=== PATIENT | female | born 1970 | race Caucasian/White ===

== ENCOUNTER → 2016-09-14 | Outpatient (REF) ==
[2016-09-14 09:54] LABS: MEAN CORPUSCULAR HEMOGLOBIN 31.4 pg (27.0-33.0); MEAN CORPUSCULAR HGB CONC 34.5 g/dl (32.0-36.5); MEAN CORPUSCULAR VOLUME 90.9 fl (80.0-96.0); RED CELL DISTRIBUTION WIDTH 12.8 % (11.5-14.5); WHITE BLOOD COUNT 8.8 K/mm3 (4.0-10.0)
[2016-09-14 10:07] LABS: ANION GAP 5 MEQ/L (8-16); BLOOD UREA NITROGEN 13 MG/DL (7-18); CALCIUM LEVEL 9.2 MG/DL (8.5-10.1); CARBON DIOXIDE LEVEL 29 MEQ/L (21-32); CHLORIDE LEVEL 111 MEQ/L (98-107); CHOLESTEROL LEVEL 191 MG/DL (<200); GLOMERULAR FILTRATION RATE > 60.0 (>58); GLUCOSE, FASTING 106 MG/DL (70-105); POTASSIUM SERUM 4.1 MEQ/L (3.5-5.1); SODIUM LEVEL 145 MEQ/L (136-145); TRIGLYCERIDES LEVEL 178 MG/DL (<150)
== END ==
LOC: M LAB REF 09:15
PROVIDERS: ATTEND Nurse Practitioner Family
DX: Z02.9 Encounter for administrative examinations, unspecified (principal)

== ENCOUNTER → 2016-09-18 | Outpatient (REF) ==
--- NOTE | 2016-09-18 13:30 | REPMRS ---
Patient History The patient states she has not had a clinical breast exam in over a year. No known family history of cancer. Digital Mammo Screening Bilat: September 18, 2016 - Exam #: [id number] Bilateral CC and MLO view(s) were taken. Technologist: Shilpi Leung, Technologist Prior study comparison: October 15, 2013, bilateral digital mammo screening bilat performed at [facility]. April 24, 2012, bilateral digital mammo screening bilat performed at [facility]. FINDINGS: There are scattered fibroglandular densities. There has been no change in the appearance of the mammogram from the prior studies. There is a mild amount of residual fibroglandular tissue which is fairly symmetric. There is no interval development of dominant mass, architectural distortion, or clustered microcalcification suggestive of malignancy. ASSESSMENT: BI-RADS/ACR category 1 mammogram. Negative. Recommendation Routine screening mammogram in 1 year (for women over age 40). This mammogram was interpreted with the aid of an FDA-approved computer-aided dectection system. Electronically Signed By: Ashkan Holley MD 09/18/16 [id number]
--- NOTE | 2016-09-18 22:41 | REP ---
Clinical: Annual physical examination . Comparison: None . Technique: PA and lateral. Findings: The mediastinum and cardiac silhouette are normal. The lung brown are clear and without acute consolidation, effusion, or pneumothorax. The skeletal structures are intact and normal. Impression: 1. No acute cardiopulmonary process. Signed by Dillon Lambert MD 09/18/2016 10:33 P
== END ==
LOC: M RAD 12:49 → EDSTATUS 13:00
PROVIDERS: ATTEND Nurse Practitioner Family
DX: Z02.89 Encounter for other administrative examinations (principal); Z12.31 Encounter for screening mammogram for malignant neoplasm of breast

== ENCOUNTER 2017-06-06 14:07 | Day surgery (SDC) | payer OTHER ==
[2017-06-06] MEDS: NS 1,000 ML IV (14:14)
[2017-06-06] MEDS: NS 500 ML IV (14:15)
[2017-06-06] MEDS: ONDANSETRON 4MG/2ML VIAL (J2405) IV ×3 (14:30→19:27)
[2017-06-06 14:35] LABS: BASO % 0.2 % (0.0-1.0); EOS % 0.2 % (0.0-3.0); HEMATOCRIT 43.2 % (36.0-47.0); HEMOGLOBIN 14.9 g/dl (12.0-16.0); IMMATURE GRANULOCYTE % 0.4 % (0-3.0); LYMPH # 1.1 10^3/uL (1.5-4.5); LYMPH % 7.1 % (24.0-44.0); MEAN CORPUSCULAR HGB CONC 34.5 g/dl (32.0-36.5); MEAN CORPUSCULAR VOLUME 86.9 fl (80.0-96.0); MONO # 0.7 10^3/uL (0.0-0.8); MONO % 4.5 % (0.0-5.0); NEUTROPHILS # 13.8 10^3/uL (1.8-7.7); NEUTROPHILS % 87.6 % (36.0-66.0); PLATELET COUNT, AUTOMATED 216 10^3/uL (150-450); RED BLOOD COUNT 4.97 10^6/uL (4.00-5.40); RED CELL DISTRIBUTION WIDTH 12.5 % (11.5-14.5); WHITE BLOOD COUNT 15.7 10^3/uL (4.0-10.0)
[2017-06-06] MEDS: MORPHINE 2 MG/ML 1ML SYRINGE (J2270) IV ×2 (14:43→15:19)
[2017-06-06 14:46] LABS: CONTROL LINE HCG INT CTR LINE PRESENT; HCG, SERUM QUALITATIVE NEGATIVE (NEGATIVE)
[2017-06-06 14:55] LABS: ALBUMIN 4.3 GM/DL (3.2-5.2); ALBUMIN/GLOBULIN RATIO 1.34 (1.00-1.93); ALKALINE PHOSPHATASE 113 U/L (45-117); ALT/SGPT 39 U/L (12-78); ANION GAP 8 MEQ/L (8-16); AST/SGOT 22 U/L (7-37); BILIRUBIN,DIRECT 0.2 MG/DL (0.0-0.2); BILIRUBIN,TOTAL 1.4 MG/DL (0.2-1.0); BLOOD UREA NITROGEN 16 MG/DL (7-18); CARBON DIOXIDE LEVEL 29 MEQ/L (21-32); CHLORIDE LEVEL 104 MEQ/L (98-107); CPK CREATINE PHOSPHOKINASE 74 U/L (26-192); CREATININE FOR GFR 0.75 MG/DL (0.55-1.30); GLOMERULAR FILTRATION RATE > 60.0 (>58); GLUCOSE, FASTING 129 MG/DL (70-100); LIPASE 137 U/L (73-393); MB/CK RELATIVE INDEX 1.35 (< OR =4); POTASSIUM SERUM 3.6 MEQ/L (3.5-5.1); SODIUM LEVEL 141 MEQ/L (136-145); TOTAL PROTEIN 7.5 GM/DL (6.4-8.2); TROPONIN I < 0.02 NG/ML (< 0.10)
[2017-06-06] MEDS ORDERED: GASTROGRAFIN SOLUTION 30ML (Q9963) As Ordered (15:06)
[2017-06-06] MEDS: SUCRALFATE SUSP 1GM/10ML UD PO (15:15)
[2017-06-06] MEDS: GASTROGRAFIN SOLUTION 30ML PO ×2 (15:20→15:50)
[2017-06-06] MEDS ORDERED: ISOVUE-370 76% 100ML VIAL (Q9967) As Ordered (16:52)
[2017-06-06 18:47] LABS: CPK CREATINE PHOSPHOKINASE 60 U/L (26-192); MB/CK RELATIVE INDEX 1.66 (< OR =4); TROPONIN I < 0.02 NG/ML (< 0.10)
[2017-06-06] MEDS: MORPHINE 4 MG/ML 1ML VIAL (J2270) IV (19:28)
[2017-06-06] MEDS ORDERED: MORPHINE 4 MG/ML 1ML VIAL (J2270) IV (19:30)
[2017-06-06] MEDS ORDERED: ONDANSETRON 4MG/2ML VIAL (J2405) IV ×2 (19:30→23:45)
[2017-06-06] MEDS: PIPERACILLIN/TAZOBACTAM SOD 2.25 GM in APPROPRIATE DILUENT 1 EA IV (20:09)
[2017-06-06] MEDS: LR 1,000 ML IV ×2 (20:30→23:45)
[2017-06-06] MEDS ORDERED: ROCURONIUM BROMIDE 50 MG/5 ML VIAL As Ordered (21:59)
[2017-06-06] MEDS ORDERED: dexameTHASONE 4 MG/ML 1ML VIAL (J1100) As Ordered (21:59)
[2017-06-06] MEDS ORDERED: fentaNYL 250 MCG/5 ML INJECTION (J3010) As Ordered (21:59)
[2017-06-06] MEDS ORDERED: LIDOCAINE 2% INJ 100 MG/5 ML SDV (FOR ANES.) As Ordered (21:59)
[2017-06-06] MEDS ORDERED: PROPOFOL 200 MG/20 ML VIAL As Ordered (21:59)
[2017-06-06] MEDS ORDERED: MIDAZOLAM INJ 2 MG/2 ML VIAL (J2250) As Ordered (21:59)
[2017-06-06] MEDS ORDERED: ONDANSETRON 4MG/2ML VIAL (J2405) As Ordered (21:59)
[2017-06-06] MEDS ORDERED: KETOROLAC 60 MG/2 ML VIAL (J1885) As Ordered (22:11)
[2017-06-06] MEDS ORDERED: SCOPOLAMINE 1MG TRANSDERMAL PATCH As Ordered (22:26)
[2017-06-06] MEDS ORDERED: SUCCINYLCHOLINE 100 MG/5 ML SYRINGE (J0330) As Ordered (22:35)
[2017-06-06] MEDS: SCOPOLAMINE 1MG TRANSDERMAL PATCH TOP (22:35)
[2017-06-06] MEDS ORDERED: METOCLOPRAMIDE INJ 10MG/2ML VIAL (J2765) As Ordered ×2 (22:36→22:52)
[2017-06-06] MEDS ORDERED: NEOSTIGMINE 10 MG/10 ML VIAL (J2710) As Ordered (22:54)
[2017-06-06] MEDS ORDERED: GLYCOPYRROLATE INJ 0.2 MG/ML 2 ML VIAL As Ordered ×2 (22:54)
[2017-06-06] MEDS: BUPIVACAINE HCL 0.25% 30 ML VIAL As Ordered (23:10)
[2017-06-06] MEDS: LIDOCAINE 1% SDV INJ 30 ML VIAL As Ordered (23:10)
[2017-06-06] MEDS ORDERED: SUGAMMADEX SODIUM 500 MG/5 ML VIAL (BRIDION) As Ordered (23:20)
[2017-06-06] MEDS ORDERED: NORCO, ANEXSIA 5/325MG TABLET (HYDROcodone/ACETAMINOPHEN) PO ×2 (23:30)
[2017-06-06] MEDS ORDERED: MORPHINE 10 MG/ML 1ML VIAL (J2270) IV (23:45)
[2017-06-06] MEDS ORDERED: fentaNYL 100 MCG/2 ML INJECTION (J3010) IV (23:45)
[2017-06-06] MEDS ORDERED: METOCLOPRAMIDE INJ 10MG/2ML VIAL (J2765) IV (23:45)
[2017-06-06] MEDS ORDERED: PERCOCET 5MG/325MG TAB As Ordered (23:48)
[2017-06-06] MEDS: PERCOCET 5MG/325MG TAB PO (23:51)
[2017-06-07] MEDS: metroNIDAZOLE 500 MG in APPROPRIATE DILUENT 1 EA IV ×2 (00:30→05:23)
[2017-06-07] MEDS: CIPROFLOXACIN 400 MG in APPROPRIATE DILUENT 1 EA IV (01:50)
[2017-06-07 07:08] LABS: BASO % 0.2 % (0.0-1.0); HEMATOCRIT 39.6 % (36.0-47.0); HEMOGLOBIN 13.6 g/dl (12.0-16.0); IMMATURE GRANULOCYTE % 0.4 % (0-3.0); LYMPH # 0.7 10^3/uL (1.5-4.5); LYMPH % 3.8 % (24.0-44.0); MEAN CORPUSCULAR HEMOGLOBIN 30.2 pg (27.0-33.0); MEAN CORPUSCULAR HGB CONC 34.3 g/dl (32.0-36.5); MEAN CORPUSCULAR VOLUME 87.8 fl (80.0-96.0); MONO # 0.7 10^3/uL (0.0-0.8); MONO % 4.2 % (0.0-5.0); NEUTROPHILS # 16.3 10^3/uL (1.8-7.7); NEUTROPHILS % 91.4 % (36.0-66.0); PLATELET COUNT, AUTOMATED 179 10^3/uL (150-450); RED BLOOD COUNT 4.51 10^6/uL (4.00-5.40); RED CELL DISTRIBUTION WIDTH 12.6 % (11.5-14.5); WHITE BLOOD COUNT 17.8 10^3/uL (4.0-10.0)
[2017-06-07 07:30] LABS: ANION GAP 6 MEQ/L (8-16); BLOOD UREA NITROGEN 10 MG/DL (7-18); CALCIUM LEVEL 8.9 MG/DL (8.5-10.1); CARBON DIOXIDE LEVEL 28 MEQ/L (21-32); CHLORIDE LEVEL 108 MEQ/L (98-107); CREATININE FOR GFR 0.68 MG/DL (0.55-1.30); GLOMERULAR FILTRATION RATE > 60.0 (>58); GLUCOSE, FASTING 131 MG/DL (70-100); POTASSIUM SERUM 4.5 MEQ/L (3.5-5.1); SODIUM LEVEL 142 MEQ/L (136-145)
[2017-06-07] MEDS: ACETAMINOPHEN 500 MG TAB PO (08:23)
[2017-06-07] MEDS: BUDESONIDE EC 3 MG CAP (ENTOCORT EC) PO (08:24)
[2017-06-07] MEDS: CALCIUM/VITAMIN D 500 MG TAB PO (08:24)
[2017-06-07] MEDS: OMEPRAZOLE 20 MG CAP PO (08:24)
== END 2017-06-07 11:30 | disposition home or self-care (01) ==
LOC: M SDC 06-07 11:30 → M ED 14:07 → M SDC 19:53 → M PED 21:15
DX: K35.80 Unspecified acute appendicitis (principal); K21.9 Gastro-esophageal reflux disease without esophagitis; Z88.1 Allergy status to other antibiotic agents; Z88.2 Allergy status to sulfonamides; Z88.8 Allergy status to other drugs, medicaments and biological substances; Z79.899 Other long term (current) drug therapy; Z72.0 Tobacco use
CPT/HCPCS: 44970

== ENCOUNTER → 2018-10-27 | Outpatient (REF) | payer OTHER ==
[~2018-10-27] MED LIST: BUDE3CAP PO; CALCIUM WITH VIT D PO; CALCTAB68 PO; CIPR-249 PO; FLAG500T PO; HYDR-3715 PO; MAGN250T9 PO; OMEP20CA4 PO; TYLE500T78 PO
[2018-10-27 08:07] LABS: BASO % 0.5 % (0.0-1.0); EOS # 0.3 10^3/uL (0.0-0.50); HEMATOCRIT 44.5 % (36.0-47.0); HEMOGLOBIN 14.9 g/dl (12.0-15.5); LYMPH # 1.8 10^3/uL (1.5-4.5); LYMPH % 21.7 % (24.0-44.0); MEAN CORPUSCULAR HEMOGLOBIN 30.7 pg (27.0-33.0); MEAN CORPUSCULAR HGB CONC 33.5 g/dl (32.0-36.5); MEAN CORPUSCULAR VOLUME 91.8 fl (80.0-96.0); MONO # 0.6 10^3/uL (0.0-0.8); MONO % 7.7 % (0.0-5.0); NEUTROPHILS # 5.3 10^3/uL (1.8-7.7); NEUTROPHILS % 65.7 % (36.0-66.0); PLATELET COUNT, AUTOMATED 184 10^3/uL (150-450); RED BLOOD COUNT 4.85 10^6/uL (4.00-5.40); WHITE BLOOD COUNT 8.1 10^3/uL (4.0-10.0)
[2018-10-27 08:11] LABS: HEMATOCRIT 44.3 % (36.0-47.0); HEMOGLOBIN 15.1 g/dl (12.0-15.5); MEAN CORPUSCULAR HEMOGLOBIN 31.3 pg (27.0-33.0); MEAN CORPUSCULAR HGB CONC 34.1 g/dl (32.0-36.5); MEAN CORPUSCULAR VOLUME 91.9 fl (80.0-96.0); PLATELET COUNT, AUTOMATED 184 10^3/uL (150-450); RED BLOOD COUNT 4.82 10^6/uL (4.00-5.40); WHITE BLOOD COUNT 8.1 10^3/uL (4.0-10.0)
[2018-10-27 08:37] LABS: BLOOD UREA NITROGEN 17 MG/DL (7-18); CALCIUM LEVEL 9.1 MG/DL (8.5-10.1); CARBON DIOXIDE LEVEL 31 MEQ/L (21-32); CHLORIDE LEVEL 110 MEQ/L (98-107); CHOLESTEROL LEVEL 162 MG/DL (<200); CHOLESTEROL RISK RATIO 3.446 (<5); CREATININE FOR GFR 0.77 MG/DL (0.55-1.30); GLOMERULAR FILTRATION RATE > 60.0 (>58); GLUCOSE, FASTING 105 MG/DL (70-100); HDL CHOLESTEROL 47 MG/DL (>40); LDL CHOLESTEROL 90 MG/DL (<100); NON-HDL-C 115 MG/DL; POTASSIUM SERUM 4.3 MEQ/L (3.5-5.1); SODIUM LEVEL 145 MEQ/L (136-145); TRIGLYCERIDES LEVEL 127 MG/DL (<150)
[2018-10-27 08:44] LABS: ALT/SGPT 36 U/L (12-78); BILIRUBIN,TOTAL 0.6 MG/DL (0.2-1.0); BLOOD UREA NITROGEN 15 MG/DL (7-18); CALCIUM LEVEL 9.2 MG/DL (8.5-10.1); CARBON DIOXIDE LEVEL 30 MEQ/L (21-32); CHLORIDE LEVEL 111 MEQ/L (98-107); CHOLESTEROL LEVEL 165 MG/DL (<200); CHOLESTEROL RISK RATIO 3.367 (<5); CREATININE FOR GFR 0.77 MG/DL (0.55-1.30); GLOMERULAR FILTRATION RATE > 60.0 (>58); GLUCOSE, FASTING 101 MG/DL (70-100); HDL CHOLESTEROL 49 MG/DL (>40); LDL CHOLESTEROL 90 MG/DL (<100); NON-HDL-C 116 MG/DL; POTASSIUM SERUM 4.2 MEQ/L (3.5-5.1); SODIUM LEVEL 145 MEQ/L (136-145); TOTAL PROTEIN 6.7 GM/DL (6.4-8.2); TRIGLYCERIDES LEVEL 129 MG/DL (<150)
[2018-10-27 10:27] LABS: TOTAL 25(OH) VITAMIN D 21.7 NG/ML (30.0-100.0)
--- NOTE | 2018-10-27 12:00 | REPMRS ---
Patient History The patient states she has not had a clinical breast exam in over a year. No known family history of cancer. Taking hormonal contraceptives for 10 years. 3D TOMOSYNTHESIS WAS PERFORMED. [facility] lifetime risk for breast cancer is 9.4%. Digital Mammo Screening Bilat: October 27, 2018 - Exam #: [id number] Bilateral CC and MLO view(s) were taken. Technologist: Shilpi Leung, Technologist Prior study comparison: September 18, 2016, bilateral digital mammo screening bilat performed at [facility]. October 15, 2013, bilateral digital mammo screening bilat performed at [facility]. FINDINGS: There are scattered fibroglandular densities. There has been no change in the appearance of the mammogram from the prior studies. There is a mild amount of residual fibroglandular tissue which is fairly symmetric. There is no interval development of dominant mass, architectural distortion, or clustered microcalcification suggestive of malignancy. Assessment: BI-RADS/ACR category 1 mammogram. Negative Mammogram. Recommendation Routine screening mammogram in 1 year (for women over age 40). This mammogram was interpreted with the aid of an FDA-approved computer-aided dectection system. Electronically Signed By: Ashkan Holley MD 10/27/18 [id number]
[2018-10-27 14:19] LABS: HEMOGLOBIN A1c 5.7 %
== END ==
LOC: M RAD 07:08 → EDSTATUS 11:30
PROVIDERS: ATTEND Nurse Practitioner Family
DX: R73.01 Impaired fasting glucose (principal); Z12.31 Encounter for screening mammogram for malignant neoplasm of breast

== ENCOUNTER → 2019-12-07 | Outpatient (REF) ==
[~2019-12-07] MED LIST changes: +OMEP1CAP73 PO; -OMEP20CA4 PO
== END ==
LOC: M EMP 12:22
PROVIDERS: ATTEND Family Medicine
DX: Z02.89 Encounter for other administrative examinations (principal)

== ENCOUNTER → 2020-01-04 | Outpatient (CLI) | payer OTHER ==
[2020-01-04 08:24] LABS: ALT/SGPT 46 U/L (12-78)
== END ==
LOC: M LAB 07:04
PROVIDERS: ATTEND Podiatrist Foot & Ankle Surgery
DX: B35.1 Tinea unguium (principal)

== ENCOUNTER → 2020-01-04 | Outpatient (REF) ==
[2020-01-04 08:22] LABS: HEMATOCRIT 43.1 % (36.0-47.0); HEMOGLOBIN 14.7 g/dl (12.0-15.5); MEAN CORPUSCULAR HEMOGLOBIN 30.4 pg (27.0-33.0); MEAN CORPUSCULAR HGB CONC 34.1 g/dl (32.0-36.5); MEAN CORPUSCULAR VOLUME 89.2 fl (80.0-96.0); PLATELET COUNT, AUTOMATED 198 10^3/uL (150-450); RED BLOOD COUNT 4.83 10^6/uL (4.00-5.40); WHITE BLOOD COUNT 8.3 10^3/uL (4.0-10.0)
[2020-01-04 08:27] LABS: BLOOD UREA NITROGEN 15 MG/DL (7-18); CALCIUM LEVEL 9.4 MG/DL (8.5-10.1); CARBON DIOXIDE LEVEL 30 MEQ/L (21-32); CHLORIDE LEVEL 109 MEQ/L (98-107); CHOLESTEROL LEVEL 221 MG/DL (<200); CREATININE FOR GFR 0.76 MG/DL (0.55-1.30); GLOMERULAR FILTRATION RATE > 60.0 (>58); GLUCOSE, FASTING 106 MG/DL (70-100); HDL CHOLESTEROL 49 MG/DL (>40); LDL CHOLESTEROL 139 MG/DL (<100); NON-HDL-C 172 MG/DL; POTASSIUM SERUM 4.1 MEQ/L (3.5-5.1); SODIUM LEVEL 144 MEQ/L (136-145); TRIGLYCERIDES LEVEL 163 MG/DL (<150)
== END ==
LOC: M EMP 06:51
PROVIDERS: ATTEND Nurse Practitioner Adult Health
DX: Z00.00 Encounter for general adult medical examination without abnormal findings (principal)

== ENCOUNTER → 2020-01-05 | Outpatient (REF) ==
--- NOTE | 2020-01-05 12:44 | REPMRS ---
Patient History The patient states she had a clinical breast exam in December 2019.No known family history of cancer. Taking hormonal contraceptives for 10 years. Digital Woman Screen Mammo: January 05, 2020 - Exam #: [id number] Bilateral CC and MLO view(s) were taken. Technologist: Saba Monsalve, Technologist Prior study comparison: October 27, 2018, bilateral digital mammo screening bilat, performed at [facility]. September 18, 2016, bilateral digital mammo screening bilat, performed at [facility]. October 15, 2013, bilateral digital mammo screening bilat, performed at [facility]. FINDINGS: The breast tissue is almost entirely fat. The Volpara volumetric breast density category is: A. There has been no change in the appearance of the mammogram from the prior studies. There is no interval development of dominant mass, architectural distortion, or grouped microcalcification typical of malignancy. 3-D tomosynthesis shows no additional findings. Assessment: BI-RADS/ACR category 1 mammogram. Negative Mammogram. Recommendation Routine screening mammogram of both breasts in 1 year (for women over age 40). This patient's Lifetime Breast Cancer RIsk is estimated at 9.2 %. This mammogram was interpreted with the aid of an FDA-approved computer-aided dectection system. Electronically Signed By: Tony Pisano MD 01/05/20 [id number]
== END ==
LOC: M WHC 10:05
PROVIDERS: ATTEND Nurse Practitioner Family
DX: Z12.31 Encounter for screening mammogram for malignant neoplasm of breast (principal)

== ENCOUNTER → 2020-02-16 | Outpatient (CLI) | payer OTHER | LOC: M LABSMTC 09:34 | PROVIDERS: ATTEND Pediatrics | DX: Z20.828 Contact with and (suspected) exposure to other viral communicable diseases (principal) | CPT/HCPCS: C9803; U0003 ==

== ENCOUNTER → 2020-02-25 | Outpatient (CLI) | payer OTHER | LOC: M LABSMTC 09:57 | PROVIDERS: ATTEND Pediatrics | DX: Z20.828 Contact with and (suspected) exposure to other viral communicable diseases (principal) ==

== ENCOUNTER → 2020-02-29 | Outpatient (CLI) | payer SELFPAY | LOC: M LABSMTC 09:59 | PROVIDERS: ATTEND Pediatrics | DX: Z20.828 Contact with and (suspected) exposure to other viral communicable diseases (principal) ==

== ENCOUNTER → 2020-04-23 | Outpatient (CLI) | payer SELFPAY | LOC: M LABSMTC 08:37 | PROVIDERS: ATTEND Pediatrics | DX: Z20.828 Contact with and (suspected) exposure to other viral communicable diseases (principal) ==

== ENCOUNTER → 2020-07-14 | Outpatient (REF) | LOC: M LABSMTC 10:59 | PROVIDERS: ATTEND Pediatrics | DX: Z11.52 Encounter for screening for COVID-19 (principal) ==

== ENCOUNTER → 2020-07-17 | Outpatient (REF) | LOC: M LABSMTC 10:21 | PROVIDERS: ATTEND Pediatrics | DX: Z20.822 Contact with and (suspected) exposure to COVID-19 (principal) ==

== ENCOUNTER → 2020-09-18 | Outpatient (CLI) | payer SELFPAY | LOC: M LABSMTC 10:07 | PROVIDERS: ATTEND Pediatrics | DX: Z20.822 Contact with and (suspected) exposure to COVID-19 (principal) ==

== ENCOUNTER → 2025-02-23 | Outpatient (RCR) | LOC: M EMP 02-19 08:14 | PROVIDERS: ATTEND Family Medicine | DX: Z20.828 Contact with and (suspected) exposure to other viral communicable diseases (principal) ==